=== PATIENT | female | born 1960 | race African-American/Black ===

== ENCOUNTER 2023-10-11 07:34 | Emergency (ER) | payer OTHER ==
[2023-10-11] MEDS: Ketorolac 30 MG/ML SDV IM ONE (08:43)
== END 2023-10-11 10:16 | disposition home or self-care (01) ==
LOC: DL.ED 07:34
DX: M19.011 Primary osteoarthritis, right shoulder (principal); I10 Essential (primary) hypertension; J44.9 Chronic obstructive pulmonary disease, unspecified; W18.39XA Other fall on same level, initial encounter
CPT/HCPCS: 73030-RT; 96372; 99283; J1885